=== PATIENT | female | born 1960 | race Caucasian/White ===

== ENCOUNTER 2022-01-18 05:58 | Observation (INO) ==
[2022-01-18] MEDS ORDERED: *HR* HYDROmorphone PF 0.5 MG/0.5 ML SYRINGE IVP PRN (06:25)
[2022-01-18] MEDS ORDERED: Ondansetron 4 MG/2 ML VIAL IVP PRN ×2 (06:25→09:25)
[2022-01-18] MEDS ORDERED: *HR* FentaNYL (PF) 100 MCG/2 ML VIAL IVP PRN (06:25)
[2022-01-18] MEDS ORDERED: CeFAZolin Syr 2,000MG/20 ML 2,000 MG/20 ML SYRINGE IVPB ONE (06:25)
[2022-01-18] MEDS ORDERED: Albuterol 2.5 MG/3 ML NEBULIZER IH ONE (06:26)
[2022-01-18] MEDS ORDERED: Ringers Solution, Lactated 1,000 ML IVC SCH (06:30)
[2022-01-18] MEDS ORDERED: *HR* FentaNYL (PF) 100 MCG/2 ML VIAL ONE (06:53)
[2022-01-18] MEDS ORDERED: *HR* Midazolam HCl 2 MG/2 ML VIAL ONE (06:53)
[2022-01-18] MEDS ORDERED: *HR* Propofol 200 MG/20 ML VIAL IVP ONE (06:53)
[2022-01-18] MEDS ORDERED: *HR* Succinylcholine 200 MG/10 ML VIAL IVP ONE (06:56)
[2022-01-18] MEDS ORDERED: Lidocaine -MPF 2% 2 ML VIAL ONE (06:56)
[2022-01-18] MEDS ORDERED: Ondansetron 4 MG/2 ML VIAL ONE (06:57)
[2022-01-18] MEDS ORDERED: *HR* Rocuronium Bromide 50 MG/5 ML VIAL ONE (06:57)
[2022-01-18] MEDS ORDERED: Famotidine 20 MG TABLET PO ONE (07:00)
[2022-01-18] MEDS ORDERED: Lidocaine -MPF 4% 5 ML AMPUL ONE (07:01)
[2022-01-18] MEDS ORDERED: Sugammadex Sodium 200 MG/2 ML VIAL IV ONE (08:02)
[2022-01-18] MEDS ORDERED: EPHEDrine 50 MG/ML VIAL ONE (08:08)
[2022-01-18] MEDS ORDERED: *HR* HYDROMORPHONE 2 MG/ML VIAL ONE (08:30)
[2022-01-18] MEDS ORDERED: Acetaminophen 325 MG TABLET PO PRN (09:25)
[2022-01-18] MEDS ORDERED: Naloxone 0.4 MG/ML INJ IVP PRN (09:25)
[2022-01-18] MEDS: BuPROPion XL (24 HR) 150 MG TABLET PO SCH (10:51)
[2022-01-18] MEDS: Cholecalciferol (D-3) 1,000 UNIT (25MCG) TABLET PO SCH (10:52)
[2022-01-18] MEDS: Ringers Solution, Lactated 1,000 ML IVC SCH (16:51)
[2022-01-18] MEDS: CeFAZolin 2 GM/120 ML BAG IVPB SCH ×2 (16:52→23:50)
[2022-01-18] MEDS: *HR* HYDROcodone/Acet 5/325 mg TABLET PO PRN (19:41)
[2022-01-19] MEDS: Ringers Solution, Lactated 1,000 ML IVC SCH ×2 (08:18→12:57)
[2022-01-19] MEDS: BuPROPion XL (24 HR) 150 MG TABLET PO SCH (08:23)
[2022-01-19] MEDS: Aspirin Enteric Coated 325 MG Tablet PO SCH ×2 (08:23→20:21)
[2022-01-19] MEDS: Cholecalciferol (D-3) 1,000 UNIT (25MCG) TABLET PO SCH (08:23)
[2022-01-19] MEDS: *HR* HYDROcodone/Acet 5/325 mg TABLET PO PRN (18:08)
[2022-01-19] MEDS: Acetaminophen 325 MG TABLET PO SCH (18:09)
[2022-01-19 19:09] VITALS: TEMP 97.8
[2022-01-19] MEDS ORDERED: Melatonin 3 MG TABLET PO SCH (21:00)
[2022-01-19 23:50] VITALS: PULSE 75
[2022-01-20] MEDS: Acetaminophen 325 MG TABLET PO SCH ×3 (00:04→12:31)
[2022-01-20 06:16] VITALS: BP 149/88; O2SAT 98
[2022-01-20] MEDS: Aspirin Enteric Coated 325 MG Tablet PO SCH (09:05)
[2022-01-20] MEDS: BuPROPion XL (24 HR) 150 MG TABLET PO SCH (09:05)
[2022-01-20] MEDS: Cholecalciferol (D-3) 1,000 UNIT (25MCG) TABLET PO SCH (09:06)
== END 2022-01-20 13:16 ==
LOC: SDCAOSI 05:58 → 4WAOSI 05:58
PROVIDERS: ADMIT Orthopaedic Surgery; ATTEND Orthopaedic Surgery